=== PATIENT | male | born 1985 | race Two or more races ===

== ENCOUNTER 2024-12-19 20:49 | Emergency (ER) | payer OTHER, BC, SELFPAY ==
[2024-12-19 20:50] VITALS: BMI 31.1
--- NOTE | 2024-12-19 20:52 | XR_ITS ---
Examination: CT cervical spine without contrast 2-D sagittal reconstructions 2-D coronal reconstructions 3-D reconstructions. Exam date and time:December 19, 2024 2115 hours INDICATIONS: Patient fell today with injury to the neck, neck pain CTDI:vol (mGy) 10.1 DLP: (mGycm) 218 Technique: Multiple 2 mm axial sections of the cervical spine have been obtained. The coronal and sagittal reconstructions have been obtained. 3-D reconstructions have been obtained. Low dose protocols were performed. One or more of the following dose reduction techniques were used; automated exposure control, adjustment of the mA and/or KV according to patient size, use of iterative reconstruction technique. Findings: Axial sections demonstrate intact base of the skull. C1 exhibit satisfactory relationship to the odontoid. No acute cervical vertebral body fracture seen. Alignment posterior spinous processes satisfactory. Impression: No acute cervical fracture.
--- NOTE | 2024-12-19 20:52 | XR_ITS ---
Examination: CT brain head without contrast. 2-D sagittal coronal reconstructions Date and time of exam:December 19, and 2024 at 2115 hours INDICATIONS: Patient fell today with injury to the head, head pain CTDI: vol (mGy):51.5 DLP: (mGycm):1079 Technique: Multiple CT axial sections of the brain have been obtained, 5 mm slice thickness. Contrast has not been administered. 2-D sagittal, coronal reconstructions have been obtained Low dose protocols were performed. One or more of the following dose reduction techniques were used; automated exposure control, adjustment of the mA and/or KV according to patient size, use of iterative reconstruction technique. Findings: No significant ventricular enlargement. Intra-axial or extra-axial hemorrhage density is not seen. No mass effect or midline shift Basal cisterns are not remarkable. Fourth ventricle is midline. Cranial vault intact. Impression: Negative for acute hemorrhage, mass effect or midline shift
--- NOTE | 2024-12-19 20:54 | PD.EDHEAD ---
ED Head Injury RME/HPI General Stated complaint: ETOH FALL HEAD INJURY Time Seen by Provider: 12/19/24 20:52 Arrival date/time: 12/19/24 20:49 Limitations: no limitations RME / HPI RME / HPI Narrative: 39 year old male who is brought in by his . She noted he had exited the shower at home while intoxicated with swelling at this left forehead. He had fallen in the shower and had a 1 hour period of time where he was not observed prior when he took a shower. Related Data Allergies Allergy/AdvReac Type Severity Reaction Status Date / Time No Known Allergies Allergy Verified 12/19/24 20:57 Review of Systems Review of Systems Systems Reviewed: All systems reviewed, normal except as documented ED Exam General Limitations: Present no limitations General appearance: Present alert, in no apparent distress and appears intoxicated Head Head exam: Present atraumatic and other (erythema and edema at the left forehead, no scalp depression, Shelley sign, or hematotympanum) Eye Eye exam: Present normal appearance, PERRL and EOMI ENT ENT exam: Present normal exam, normal oropharynx and mucous membranes moist Neck Neck exam: Present normal inspection, full ROM and trachea midline Chest Chest inspection: Present normal inspection and symmetric chest wall rise Respiratory Respiratory exam: Present normal lung sounds bilaterally Cardiovascular Cardiovascular exam: Present regular rate, normal rhythm and normal heart sounds Abdominal Exam Abdominal exam: Present soft and normal bowel sounds Extremities Exam Extremities exam: Present normal inspection and full ROM Back Exam Back exam: Present normal inspection and full ROM Neurological Exam Neurological exam: Present alert, oriented X3 and other (gait is unstable ) Psychiatric Psychiatric exam: Present normal affect and normal mood Skin Skin exam: Present warm, dry, intact and normal color Course Quality Measures none Orders Category Date Time Status CT cervical spine wo con Stat Exams 12/19/24 20:[address] head/brain wo con Stat Exams 12/19/24 20:52 Completed Alcohol, Blood Medical Stat Lab 12/19/24 21:04 Completed CBC Stat Lab 12/19/24 21:04 Completed CMP [Comprehensive Metabolic Panel] Stat Lab 12/19/24 21:04 Completed HYDROcodone*/APAP 5/325 [[place] 5/325] Med 12/19/24 21:56 Discontinued 1 tab PO X1 ONE Vital Signs Vital signs: Vital Signs Temperature 98.6 F 12/19/24 21:05 Pulse Rate 77 06/22/25 21:05 Respiratory Rate 16 12/19/24 21:05 Blood Pressure 111/68 12/19/24 21:05 Pulse Oximetry (%) 96 12/19/24 21:05 Oxygen Delivery Method Room Air 12/19/24 21:05 Head Injury MDM Narrative MDM Narrative:: 39-year-old male with no significant past medical history is brought in by his for alcohol intoxication. She states there was about an hour period where he was not observed. He had a reported fall in the shower that was not witnessed. He has erythema, and mild edema, at the left forehead. His gait is unstable. He drinks alcohol normally once or twice a week and when he does has 1-2 drinks at a time. Today he drank approximately 12 beers. He does not take any blood thinners. He has no history of A-fib. Work appears unremarkable for any intracranial or neck pathology. Patient remained stable throughout the ER course and will be discharged to to home. They will return as needed for any worsening or emergent changes. Patient data External records reviewed:: Other (specify) Clinical information provided by:: patient and family Social determinants that could affect healthcare access:: alcohol use Patient has the following chronic illnesses:: n/a How is presenting disease/condition affected by chronic disease/condition?: no chronic disease Evaluation data The following diagnostics were reviewed and interpreted by me:: lab results and radiology exam(s) Lab and/or radiology exams considered but not ordered:: n/a Interpretation Summary: Alcohol level elevated Medications / Prescriptions Medications or Prescriptions considered but not ordered:: n/a Medication administrations:: Medication Administration History Discontinued Medications Hydrocodone Bitart/Acetaminophen (Hydrocodone/Apap 5/325 Tablet) 1 tab PO X1 ONE Stop: 12/19/24 21:57 Last Admin: 12/19/24 22:16 Dose: 1 tab Documented By: DT See above Consultations Consultation(s) initiated? (list below): No Diagnosis Differential diagnosis head injury: other Most likely diagnosis given after review of the tests above:: n/a Admission Indicated Admission indicated?: not indicated Admission Request Was there a request for admission?: No Disposition Plan Disposition Plan: Discharge Discharge Attestation Discharge Attestation: The patient and all family members were given an opportunity to ask questions and understood the discharge instructions. Discharge instructions specifically effects, indications for sooner follow up or return to the emergency department, and the expected course of current diagnosis. Patient condition: Stable Discharge Plan Plan Patient Disposition: HOME (Self Care) Patient condition on transfer: Stable Prescriptions/Referrals Referrals: No Primary/Family,Physician [Primary Care Provider] - In 1 week Problem List Clinical Impression: Scalp hematoma, Alcohol abuse Patient/Caregiver Discharge Instructions Education Materials: Bruises (Contusions), ED Alcohol Abuse Additional Instructions: Maintain oral hydration. Use Tylenol as needed for comfort. Return to the emergency room anytime for any worsening or emergent changes. Print Language: Vietnamese Stand Alone Forms: Marilyn Award Info., Patient Portal Info Letter
[2024-12-19 21:05] VITALS: BP 111/68; PULSE 77; RESP 16; TEMP 37; O2SAT 96
[2024-12-19 21:23] LABS: Basophils # (Auto) 0.1 Thou/mm3 (0.0-0.2); Basophils % (Auto) 1 % (0-2.5); Eosinophils # (Auto) 0.1 Thou/mm3 (0.0-0.5); Eosinophils % (Auto) 1 % (0-10); Hematocrit 42.2 % (41.0-53.0); Hemoglobin 14.3 g/dL (13.5-16.0); Immature Granulocytes % (Auto) 0 % (0-0); Immature Granulocytes Auto 0.02 Thou/mm3 (0.00-0.00); Lymphocytes # (Auto) 3.3 Thou/mm3 (1.0-4.8); Lymphocytes % (Auto) 40 % (10-50); Mean Corpuscular HGB Conc 33.9 g/dl (31.0-37.0); Mean Corpuscular Hemoglobin 26.5 pg (25.0-35.0); Mean Corpuscular Volume 78 fL (80-100); Monocytes # (Auto) 0.5 Thou/mm3 (0.0-0.8); Monocytes % (Auto) 6 % (0-12); Neutrophils # (Auto) 4.3 Thou/mm3 (1.8-7.7); Neutrophils % (Auto) 52 % (37-80); Nucleated Red Blood Cell % 0 /100 WBC (0); Platelet Count 279 Thou/mm3 (140-440); RDW Standard Deviation 38.1 fL (35.1-43.9); White Blood Count 8.2 Thou/mm3 (3.8-10.6)
[2024-12-19 21:27] VITALS: BP 125/85; PULSE 78; RESP 14; TEMP 37; O2SAT 95
[2024-12-19 21:36] LABS: Alanine Aminotransferase 92 U/L (10-49); Albumin, Serum 4.7 gm/dL (3.5-5.0); Albumin/Globulin Ratio 1.6 (1.2-2.2); Alkaline Phosphatase 114 U/L (46-116); Anion Gap 13 (7-16); Aspartate Amino Transferase 53 U/L (0-34); BUN/Creatinine Ratio 7 Ratio (12-20); Bilirubin,Total 0.4 mg/dL (0.3-1.2); Blood Urea Nitrogen 6 mg/dL (9-23); Calcium 9.1 mg/dL (8.3-10.6); Calcium (Corrected) 9.1 mg/dL (8.5-10.1); Carbon Dioxide 25.4 mMol/L (20.0-31.0); Chloride 98 mMol/L (98-107); Creatinine (Component) 0.9 mg/dL (0.6-1.3); Estimated Creatinine Clearance 137.6 mL/min (>60); Glucose 241 mg/dL (74-106); Osmolality,Calculated 277 (275-295); Potassium 3.6 mMol/L (3.4-5.1); Sodium 136 mMol/L (136-145); Total Protein 7.7 gm/dL (5.7-8.2); eGFR > 60 See Note
[2024-12-19] MEDS: HYDROcodone/APAP 5/325 TABLET 1 TAB PO (22:16)
[2024-12-19 22:23] VITALS: BP 126/89; PULSE 85; RESP 14; TEMP 37; O2SAT 99
== END 2024-12-19 22:24 | disposition home or self-care (01) ==
PROVIDERS: Physician Assistant Medical; Emergency Provider Emergency Medicine
DX: S00.03XA Contusion of scalp, initial encounter (principal); W18.2XXA Fall in (into) shower or empty bathtub, initial encounter; F10.10 Alcohol abuse, uncomplicated; S19.9XXA Unspecified injury of neck, initial encounter
CPT/HCPCS: 36415; 70450; 72125; 80053; 80320; 85025; 99284; A9270; G0480